=== PATIENT | male | born 1995 | race Two or more races ===

== ENCOUNTER 2016-06-10 17:56 | Emergency (ER) | payer OTHER ==
[2016-06-10 17:59] VITALS: BP 134/77; PULSE 72; TEMP 98.7; BMI 26.6
--- NOTE | 2016-06-10 18:18 | PDOC ---
History of Present Illness - General Chief Complaint: Sore Throat Stated Complaint: SORE THROAT Time Seen by Provider: 06/10/16 18:06 History Source: Patient Exam Limitations: No Limitations - History of Present Illness Timing/Duration: other (x5d) Associated Symptoms: reports: fever/chills (x4d ago). denies: cough, malaise, nausea/vomiting Past History - Travel Traveled outside of the country in the last 30 days: No Close contact w/someone who was outside of country & ill: No - Past Medical History Allergies/Adverse Reactions: Allergies Allergy/AdvReac Type Severity Reaction Status Date / Time shellfish derived Allergy Verified 06/10/16 17:59 Home Medications: Ambulatory Orders Amoxicillin - [Amoxicillin 875mg Tablet -] 875 mg PO BID #14 tab 06/10/16 Other medical history: none - Psycho/Social/Smoking Cessation Hx Anxiety: No Suicidal Ideation: No Smoking History: Never smoked Have you smoked in the past 12 months: No Information on smoking cessation initiated: No Hx Alcohol Use: No Drug/Substance Use Hx: No Substance Use Type: None Review of Systems - Review of Systems Able to Perform ROS?: Yes Comments:: 06/10/16 18:48 CONSTITUTIONAL: Absent: fever, chills, diaphoresis, generalized weakness, malaise, loss of appetite HEENT: +sore throat Absent: rhinorrhea, nasal congestion,throat swelling, difficulty swallowing, mouth swelling, ear pain, eye pain, visual Changes CARDIOVASCULAR: Absent: chest pain, loss of consciousness, palpitations, irregular heart rate, peripheral edema RESPIRATORY: Absent: cough, shortness of breath, dyspnea with exertion, orthopnea, wheezing, stridor, hemoptysis GASTROINTESTINAL: Absent: abdominal pain, abdominal distension, nausea, vomiting, diarrhea, constipation, melena, hematochezia GENITOURINARY: Absent: dysuria, frequency, urgency, hesitancy, hematuria, flank pain, genital pain MUSCULOSKELETAL: Absent: myalgia, arthralgia, joint swelling SKIN: Absent: rash, itching, pallor HEMATOLOGIC/IMMUNOLOGIC: Absent: easy bleeding, easy bruising, lymphadenopathy, frequent infections ENDOCRINE: Absent: unexplained weight gain, unexplained weight loss, heat intolerance, cold intolerance NEUROLOGIC: Absent: headache, focal weakness or paresthesias, dizziness, unsteady gait, seizure, mental status changes, bladder or bowel incontinence PSYCHIATRIC: Absent: anxiety, depression, suicidal or homicidal ideation, hallucinations. Is the patient limited [place] proficient: No *Physical Exam - Vital Signs Last Vital Signs Temp Pulse Resp BP Pulse Ox 98.7 F 72 18 134/77 100 06/10/16 17:58 06/10/16 17:58 06/10/16 17:58 06/10/16 17:58 06/10/16 17:58 - Physical Exam Comments: 06/10/16 18:49 GENERAL: Well developed, well nourished. Awake and alert. No acute distress. HEENT: Left tonsil: multiple exudates with erythma to b/l tonsils Normocephalic, atraumatic. PERRLA, EOMI. No conjunctival pallor. Sclera are non- icteric. Moist mucous membranes. Oropharynx is clear. NECK: Supple. Full ROM. No JVD. Carotid pulses 2+ and symmetric, without bruits. No thyromegaly. No lymphadenopathy. CARDIOVASCULAR: Regular rate and rhythm. No murmurs, rubs, or gallops. Distal pulses are 2+ and symmetric. PULMONARY: No evidence of respiratory distress. Lungs clear to auscultation bilaterally. No wheezing, rales or rhonchi. ABDOMINAL: Soft. Non-tender. Non-distended. No rebound or guarding. No organomegaly. Normoactive bowel sounds. MUSCULOSKELETAL Normal range of motion at all joints. No bony deformities or tenderness. No CVA tenderness. EXTREMITIES: No cyanosis. No clubbing. No edema. No calf tenderness. SKIN: Warm and dry. Normal capillary refill. No rashes. No jaundice. NEUROLOGICAL: Alert, awake, appropriate. Cranial nerves 2-12 intact. No deficits to light touch and temperature in face, upper extremities and lower extremities. No motor deficits in the in face, upper extremities and lower extremities. Normoreflexic in the upper and lower extremities. Normal speech. Toes are down- going bilaterally. Gait is normal without ataxia. PSYCHIATRIC: Cooperative. Good eye contact. Appropriate mood and affect. *DC/Admit/Observation/Transfer Diagnosis at time of Disposition: Tonsillitis with exudate - Discharge Dispostion Disposition: HOME Condition at time of disposition: Stable - Prescriptions Prescriptions: Amoxicillin - [Amoxicillin 875mg Tablet -] 875 mg PO BID #14 tab - Referrals Referrals: Cristobal Serrano MD [Staff Physician] - - Patient Instructions Printed Discharge Instructions: DI for Pharyngitis/Tonsillopharyngitis -- Adult Additional Instructions: Increase fluids Gargle with salt water Tylenol/Motrin as needed for pain Follow up with your physician this week Avoid contact sports until [employer] blood work comes back in 24 hours Return to the ER for severe/persistent or worsening symptoms Progress Note - Progress Note Progress Note: 20-year-old male presents to the emergency department with his mother complaining of a sore throat and mild generalized malaise5 days. Patient says he had a fever of 101.04 days ago which subsided after taking Tylenol. Patient denies taking any other antipyretic medication because he didn't have a fever since 4 days ago. Patient denies any headache, dizziness, lightheadedness, difficulty swallowing, nasal congestion, sinus discomfort, earaches, neck pains , back pain, chest pain, shortness of breath, abdominal discomfort.
== END 2016-06-10 19:45 | disposition home or self-care (01) ==
LOC: JERFT 17:56
DX: J03.90 Acute tonsillitis, unspecified (principal)
CPT/HCPCS: 36415; 86308; 87070; 87430; 99281-25

== ENCOUNTER 2016-08-12 10:42 | Emergency (ER) | payer OTHER ==
[2016-08-12 11:27] VITALS: BP 154/72; PULSE 88; TEMP 98.3; BMI 29.0
[2016-08-12] MEDS ORDERED: IBUPROFEN 600 MG TABLET (FP) PO ONE ×2 (12:47→12:49)
--- NOTE | 2016-08-12 12:47 | PDOC ---
History of Present Illness - General Chief Complaint: Injury Stated Complaint: RT ANKLE PAIN Time Seen by Provider: 08/12/16 12:34 History Source: Patient Exam Limitations: No Limitations - History of Present Illness Initial Comments: 08/12/16 12:47 CHIEF COMPLAINT: Ankle pain HISTORY OF PRESENT ILLNESS: This is an otherwise healthy 21 year old male who presents for evaluation of right ankle pain. He reports that he "twisted" his right ankle yesterday while running. Since then, he has been having pain that limits weight-bearing. REVIEW OF SYSTEMS: GENERAL/CONSTITUTIONAL: No fever or chills. No weakness. No weight change. MUSCULOSKELETAL: See HPI. SKIN: No rash or easy bruising. NEUROLOGIC: No numbness or loss of sensation. HEMATOLOGIC/LYMPHATIC: No anemia, easy bleeding, or history of blood clots. ALLERGIC/IMMUNOLOGIC: No hives or skin allergy. No latex allergy. PHYSICAL EXAM: GENERAL: The patient is awake, alert, and fully oriented, in no acute distress. EXTREMITIES: Edema and tenderness at right lateral malleolus. Limited weight- bearing. NEUROLOGICAL: Normal speech. CN II-XII grossly intact. PSYCH: Normal mood, normal affect. SKIN: Warm, dry, normal turgor, no rashes or lesions noted. Past History - Past Medical History Allergies/Adverse Reactions: Allergies Allergy/AdvReac Type Severity Reaction Status Date / Time shellfish derived Allergy Verified 08/12/16 11:25 Home Medications: Ambulatory Orders Naproxen [Naprosyn -] 500 mg PO BID #14 tablet 08/12/16 Other medical history: DENIES. - Psycho/Social/Smoking Cessation Hx Anxiety: No Suicidal Ideation: No Smoking History: Never smoked Have you smoked in the past 12 months: No Hx Alcohol Use: No Drug/Substance Use Hx: No Substance Use Type: None *Physical Exam - Vital Signs Last Vital Signs Temp Pulse Resp BP Pulse Ox 98.3 F 88 19 154/72 98 08/12/16 11:25 08/12/16 11:25 08/12/16 11:25 08/12/16 11:25 08/12/16 11:25 ED Treatment Course - RADIOLOGY Radiology Studies Ordered: Category Date Time Status ANKLE & FOOT-RIGHT* [RAD] Stat Radiology 08/12/16 12:46 Ordered Medical Decision Making - Medical Decision Making 09/28/16 10:57 A/P: 21 yea rold male with ankle injury. -Xray foot and ankle: no acute fracture -Brace/crutches -NSAIDs -RICE therapy -Ortho followup -Return precautions reviewed *DC/Admit/Observation/Transfer Diagnosis at time of Disposition: Ankle sprain Qualifiers: Encounter type: initial encounter Involved ligament of ankle: unspecified ligament Laterality: right Qualified Code(s): S93.401A - Sprain of unspecified ligament of right ankle, initial encounter - Discharge Dispostion Disposition: HOME Admit: No - Prescriptions Prescriptions: Naproxen [Naprosyn -] 500 mg PO BID #14 tablet - Referrals Referrals: César Christensen MD [Staff Physician] - 1 week - Patient Instructions Printed Discharge Instructions: DI for Ankle Sprain Additional Instructions: -Your xray does not show a fracture -Rest with your foot elevated above the level of your heart -Take Naproxen as prescribed for pain and inflammation -Use the ankle brace and crutches provided to limit weight-bearing -Follow up with orthopedics (referral enclosed) if symptoms are not improving -No sports until symptoms are completely resolved
== END 2016-08-12 14:10 | disposition home or self-care (01) ==
LOC: JERFT 10:42 → JER 10:42 → JERFT 14:10
PROC: 2W3LX1Z Immobilization of Right Lower Extremity using Splint (ICD-10-PCS; principal; 2016-08-12)
DX: S93.401A Sprain of unspecified ligament of right ankle, initial encounter (principal); X50.1XXA Overexertion from prolonged static or awkward postures, initial encounter; Y93.02 Activity, running; Y92.89 Other specified places as the place of occurrence of the external cause
CPT/HCPCS: 29515; 73610-TC-RT; 73630-TC-RT; 99281-25

== ENCOUNTER 2016-11-10 12:22 | Emergency (ER) | payer OTHER ==
[2016-11-10 12:36] VITALS: BP 123/65; PULSE 74; TEMP 98.2; BMI 29.0
--- NOTE | 2016-11-10 13:25 | PDOC ---
History of Present Illness - General Chief Complaint: Poison [place],Poison [place] Exposure Stated Complaint: RASH/posion lubna Time Seen by Provider: 11/10/16 13:22 History Source: Patient Exam Limitations: No Limitations - History of Present Illness Initial Comments: 11/10/16 13:58 My chief complaint: Itchy rash on right arm right thumb and left hand History of present illness: Patient is a 21-year-old male with no significant medical history here today complaining of a worsening rash that is pruritic that started approximately one and a half weeks ago. Patient reports that he brushed against a crater that had poison lubna at his job. Patient denies any difficulty swallowing or breathing. Timing/Duration: getting worse Severity: moderate Associated Symptoms: reports: rash (rt. thumb, rt. forearm , left hand between 5th and 4 th digits) Past History - Past Medical History Allergies/Adverse Reactions: Allergies Allergy/AdvReac Type Severity Reaction Status Date / Time shellfish derived Allergy Verified 11/10/16 12:33 Home Medications: Ambulatory Orders Naproxen [Naprosyn -] 500 mg PO BID #14 tablet 08/12/16 Other medical history: none - Psycho/Social/Smoking Cessation Hx Anxiety: No Suicidal Ideation: No Smoking History: Never smoked Have you smoked in the past 12 months: No Information on smoking cessation initiated: No Hx Alcohol Use: No Drug/Substance Use Hx: No Substance Use Type: None Review of Systems - Review of Systems Able to Perform ROS?: Yes Constitutional: No: Symptoms Reported HEENTM: No: Symptoms Reported Respiratory: No: Symptoms reported Cardiac (ROS): No: Symptoms Reported Musculoskeletal: No: Symptoms Reported Integumentary: Yes: Pruritus (rt. thumb, rt. forearm, left hand 4th and 5th digit), Rash Neurological: No: Symptoms reported *Physical Exam - Vital Signs Last Vital Signs Temp Pulse Resp BP Pulse Ox 98.2 F 74 18 123/65 100 11/10/16 12:34 11/10/16 12:34 11/10/16 12:34 11/10/16 12:34 11/10/16 12:34 - Physical Exam General Appearance: Yes: Appropriately Dressed Respiratory/Chest: positive: Lungs Clear, Normal Breath Sounds. negative: Chest Tender, Respiratory Distress Cardiovascular: positive: Regular Rhythm, Regular Rate, S1, S2 Integumentary: positive: Rash (with tiny vesicles rt. doral thumb, rt. forearm in a linear pattern , left 4th and 5th finger ) Neurologic: positive: Alert, Normal Response, Responsive Medical Decision Making - Medical Decision Making 11/10/16 14:00 Patient is a 21-year-old male with no significant medical history here today complaining of a worsening rash that is pruritic that started approximately one and a half weeks ago. Patient reports that he brushed against a carter that had poison lub[place] at his job. Patient denies any difficulty swallowing or breathing. 11/10/16 14:00 Contact dermatitis PLAN: kenalog 40 mg IM now *DC/Admit/Observation/Transfer Diagnosis at time of Disposition: Contact dermatitis and eczema due to plant - Discharge Dispostion Disposition: HOME Condition at time of disposition: Stable - Referrals Referrals: Samm Sagastume MD [Primary Care Provider] - Stephen López [Non Staff, Medical] - - Patient Instructions Additional Instructions: Return to emergency room if symptoms worsen May follow up with electrician's assistant this week You may purchase IV block [id number] to apply when going near any wooded areas in order to prevent poison lub[place] You may take diphenhydramine as needed as directed by rotary drum tanner may purchase [id number] for itchiness Patient voiced understanding of discharge instructions and all questions were answered
[2016-11-10] MEDS ORDERED: TRIAMCINOLONE ACET 40MG/1ML VIAL IM ONE (13:47)
[2016-11-10] MEDS ORDERED: TRIAMCINOLONE ACET 40MG/1ML VIAL ONE (13:51)
== END 2016-11-10 14:29 | disposition home or self-care (01) ==
LOC: JERFT 12:22
PROC: 3E0233Z Introduction of Anti-inflammatory into Muscle, Percutaneous Approach (ICD-10-PCS; principal; 2016-11-10)
DX: L23.7 Allergic contact dermatitis due to plants, except food (principal)
CPT/HCPCS: 96372; 99281-25

== ENCOUNTER 2017-10-08 20:01 | Emergency (ER) | payer OTHER ==
[2017-10-08 20:15] VITALS: BP 126/70; BMI 35.5
[2017-10-08 20:24] VITALS: PULSE 67; TEMP 99
[2017-10-08] MEDS ORDERED: ERYTHROMYCIN 0.5% OPHTHALMIC OINTMENT 3.5 GM TUBE ONE (20:59)
--- NOTE | 2017-10-08 21:01 | PDOC ---
History of Present Illness - General History Source: Patient Exam Limitations: No Limitations - History of Present Illness Initial Comments: 10/08/17 21:15 The patient is 22 a year old male with no significant past medical history who presents to the emergency department for evaluation of right lower eyelid stye. The patient reports a 3 month history of right lower eyelid stye. He reports the stye has been progressively swelling with no signs of improvement which prompted him to visit the emergency department today. The patient denies eye crusting, changes in vision, fever, chills, nausea, vomiting, or a history of styes. Allergies: Shellfish derived. Past surgical history: Denies. Social history: No reported cigarette, alcohol, or drug use. <Lloyd Varela - Last Filed: 10/08/17 21:20> <Hedy Maxwell - Last Filed: 10/09/17 02:30> - General Chief Complaint: Abscess Boil Stated Complaint: RIGHT LOWER EYELID REDENESS/SWELLING Time Seen by Provider: 10/08/17 20:04 Past History <Lloyd Varela - Last Filed: 10/08/17 21:20> - Past Medical History COPD: No - Immunization History Immunization Up to Date: Yes - Suicide/Smoking/Psychosocial Hx Smoking History: Never smoked Have you smoked in the past 12 months: No Hx Alcohol Use: No Drug/Substance Use Hx: No Substance Use Type: None <Hedy Maxwell - Last Filed: 10/09/17 02:30> - Past Medical History Allergies/Adverse Reactions: Allergies Allergy/AdvReac Type Severity Reaction Status Date / Time shellfish derived Allergy Verified 10/08/17 20:04 Home Medications: Ambulatory Orders NK [No Known Home Medication] 10/08/17 Review of Systems - Review of Systems Able to Perform ROS?: Yes Comments:: All systems are reviewed and negative except as noted in the HPI. <Lloyd Varela - Last Filed: 10/08/17 21:20> *Physical Exam - Vital Signs Last Vital Signs Temp Pulse Resp BP Pulse Ox 99.0 F 67 149 H 126/70 99 10/08/17 20:02 10/08/17 20:02 10/08/17 20:02 10/08/17 20:02 10/08/17 20:02 - Physical Exam Comments: GENERAL: The patient is awake, alert, and fully oriented, in no acute distress. HEAD: Normal with no signs of trauma. EYES: (+)1/2cm x 1/2cm firm stye, without drainage of internal portion of right lower lid. (+)Moderate edema, mild tenderness, and mild erythema of lateral aspect of right external lower lid. (+)tender prominence of the lateral third of external lower eyelid, no drainage noted, no other abnormality noted. Pupils equal, round and reactive to light, extraocular movements intact, sclera anicteric, conjunctiva clear. EXTREMITIES: Normal range of motion, no edema. NEUROLOGICAL: Normal speech, normal gait. PSYCH: Normal mood, normal affect. SKIN: Warm, Dry, normal turgor, no rashes or lesions noted. <Lloyd Varela - Last Filed: 10/08/17 21:20> - Vital Signs Last Vital Signs Temp Pulse Resp BP Pulse Ox 99.0 F 67 149 H 126/70 99 10/08/17 20:02 10/08/17 20:02 10/08/17 20:02 10/08/17 20:02 10/08/17 20:02 <Hedy Maxwell - Last Filed: 10/09/17 02:30> Medical Decision Making - Medical Decision Making Documentation has been prepared under my direction and personally reviewed by me in its entirety. I attest that this documented accurately reflects all work, treatment, procedures and medical decision making performed by me. As noted above, this 22-year-old man presents with 3 month history of swelling in the inner portion of his right lower eyelid. Over the last few days, the swelling has increased. No previous history of styes; he has not had any discharge or drainage of the current lesion. Exam as noted. Small amount of erythromycin ointment placed to the area of the internal hordeolum. He should continue this until seen by an structural layout worker Patient has been instructed to place warm compresses on the outside of the lower eyelid also. It was explained to the patient that the incision and drainage of this collection should be performed by an structural layout worker. Dr. Cummins is on service call for ophthalmology: Referral information for his office given to the patient. He should call the office tomorrow to make an appointment for evaluation within the next 5 days. <Hedy Maxwell - Last Filed: 10/09/17 02:30> *DC/Admit/Observation/Transfer - Attestations Scribe Attestion: Documentation prepared by Lloyd Varela, acting as manager medical device for Hedy Maxwell MD. <Lloyd Varela - Last Filed: 10/08/17 21:20> <Hedy Maxwell - Last Filed: 10/09/17 02:30> Diagnosis at time of Disposition: Internal hordeolum of right eye Qualifiers: Eyelid: lower Qualified Code(s): H00.022 - Hordeolum internum right lower eyelid - Discharge Dispostion Disposition: HOME Condition at time of disposition: Stable - Referrals Referrals: Ventura Cummins MD [Staff Physician] - Call tomorrow - Patient Instructions Printed Discharge Instructions: Hordeolum Additional Instructions: Warm compresses to outside of right lower eyelid 4 times a day until seen by structural layout worker Erythromycin ointment to right inner eyelid every 4 hours while awake Call structural layout worker office (/) in a.m. to arrange follow- up within the next 5 days
== END 2017-10-08 21:14 | disposition home or self-care (01) ==
LOC: FER 20:01
DX: H00.022 Hordeolum internum right lower eyelid (principal)
CPT/HCPCS: 99281-25

== ENCOUNTER 2022-05-30 13:23 | Emergency (ER) | payer OTHER ==
[2022-05-30 13:30] VITALS: BP 143/84; PULSE 96; RESP 18; BMI 35.5
[2022-05-30] MEDS ORDERED: ONDANSETRON *ODT* 4 MG TABLET SL ONE (14:48)
[2022-05-30] MEDS ORDERED: FAMOTIDINE 20 MG TABLET PO ONE (14:48)
[2022-05-30] MEDS ORDERED: ONDANSETRON 4 MG TABLET PO ONE (15:02)
[2022-05-30] MEDS ORDERED: FAMOTIDINE 20 MG TABLET ONE (15:02)
[2022-05-30 16:27] LABS: BASO % 0.4 % (0-2.0); EOS % 0.5 % (0-4.5); HEMATOCRIT 46.1 % (35.4-49); HEMOGLOBIN 15.4 GM/dL (11.7-16.9); LYMPH % 19.3 % (8-40); MCH 28.6 pg (25.7-33.7); MCHC 33.5 g/dl (32.0-35.9); MEAN CELL VOLUME 85.4 fl (80-96); MEAN PLT VOLUME 8.5 fl (7.5-11.1); MONO % 10.6 % (3.8-10.2); NEUT % 69.2 % (42.8-82.8); PLATELET COUNT 300 10^3/uL (134-434); RDW 13.7 % (11.9-15.9)
[2022-05-30 16:42] LABS: ALBUMIN 4.4 g/dl (3.4-5.0); BLOOD UREA NITROGEN 22.8 mg/dL (7-18); CALCIUM 9.3 mg/dL (8.5-10.1)
[2022-05-30 16:45] LABS: CREATININE 0.8 mg/dL (0.55-1.3)
[2022-05-30 16:47] LABS: BILIRUBIN,TOTAL 0.4 mg/dL (0.2-1); TOT PROT 8.7 g/dl (6.4-8.2)
== END 2022-05-30 17:35 | disposition home or self-care (01) ==
LOC: JERFT 13:23 → JER 13:23 → JERFT 17:35
DX: R10.84 Generalized abdominal pain (principal)
CPT/HCPCS: 36415; 76705-TC; 80053; 85025; 99284-25; Q0162

== ENCOUNTER 2022-09-03 17:51 | Emergency (ER) | payer OTHER ==
[2022-09-03 18:32] VITALS: BP 133/82; PULSE 80; RESP 18; TEMP 98.1; BMI 34.4
[2022-09-03 21:04] LABS: BASO % 0.6 % (0-2.0); EOS % 1.1 % (0-4.5); HEMOGLOBIN 14.2 GM/dL (11.7-16.9); LYMPH % 21.8 % (8-40); MCH 28.9 pg (25.7-33.7); MCHC 34.6 g/dl (32.0-35.9); MEAN CELL VOLUME 83.6 fl (80-96); MEAN PLT VOLUME 8.4 fl (7.5-11.1); MONO % 8.2 % (3.8-10.2); NEUT % 68.3 % (42.8-82.8); PLATELET COUNT 248 10^3/uL (134-434); RDW 12.9 % (11.9-15.9); WHITE BLOOD COUNT 8.3 K/mm3 (4.0-10.0)
[2022-09-03 21:28] LABS: CALCIUM 8.8 mg/dL (8.5-10.1)
[2022-09-03 21:32] LABS: CREATININE 0.7 mg/dL (0.55-1.3)
[2022-09-03 21:33] LABS: BILIRUBIN,TOTAL 0.3 mg/dL (0.2-1); TOT PROT 7.9 g/dl (6.4-8.2)
== END 2022-09-03 23:01 | disposition home or self-care (01) ==
LOC: JER 17:51
DX: R00.2 Palpitations (principal); R07.9 Chest pain, unspecified; G47.00 Insomnia, unspecified
CPT/HCPCS: 36415; 71046-TC-FY; 80053; 82550; 84484; 85025; 93005; 93010; 99285-25

== ENCOUNTER 2023-01-03 09:13 | Emergency (ER) | payer OTHER ==
[2023-01-03] MEDS ORDERED: ACETAMINOPHEN 500 MG TABLET (FP) PO ONE (09:22)
[2023-01-03] MEDS ORDERED: KETOROLAC TROMETHAMINE 30 MG/1 ML VIAL IM ONE (09:22)
[2023-01-03 09:30] VITALS: BP 125/77; PULSE 77; RESP 18; TEMP 98.6; BMI 34.4
[2023-01-03] MEDS ORDERED: ACETAMINOPHEN 325 MG TABLET (FP) ONE (09:34)
[2023-01-03] MEDS ORDERED: KETOROLAC TROMETHAMINE 30 MG/1 ML VIAL ONE (09:35)
== END 2023-01-03 10:35 | disposition home or self-care (01) ==
LOC: FER 09:13
PROC: 3E0233Z Introduction of Anti-inflammatory into Muscle, Percutaneous Approach (ICD-10-PCS; principal; 2023-01-03)
DX: S82.831A Other fracture of upper and lower end of right fibula, initial encounter for closed fracture (principal); M25.571 Pain in right ankle and joints of right foot; R22.41 Localized swelling, mass and lump, right lower limb; S90.02XA Contusion of left ankle, initial encounter; X50.1XXA Overexertion from prolonged static or awkward postures, initial encounter; Y93.67 Activity, basketball
CPT/HCPCS: 73590-TC-RT-FY; 73610-TC-RT-FY; 73630-TC-RT-FY; 99284-25

== ENCOUNTER 2023-04-17 12:16 | Emergency (ER) | payer OTHER ==
[2023-04-17 12:23] VITALS: BP 129/80; PULSE 79; RESP 18; TEMP 98.2; BMI 34.4
[2023-04-17] MEDS ORDERED: DEXAMETHASONE SOD PHOSPHATE 10 MG/1 ML VIAL IM ONE (13:21)
[2023-04-17] MEDS ORDERED: DEXAMETHASONE SOD PHOSPHATE 10 MG/1 ML VIAL ONE (13:24)
== END 2023-04-17 14:12 | disposition home or self-care (01) ==
LOC: JERFT 12:16
PROC: 3E023GC Introduction of Other Therapeutic Substance into Muscle, Percutaneous Approach (ICD-10-PCS; principal; 2023-04-17)
DX: L29.9 Pruritus, unspecified (principal); L53.9 Erythematous condition, unspecified; T78.1XXA Other adverse food reactions, not elsewhere classified, initial encounter
CPT/HCPCS: 99284-25; J1100